=== PATIENT | female | born 1955 | race Caucasian/White ===

== ENCOUNTER 2024-11-17 01:31 | Emergency (ER) | payer MEDICARE, SELFPAY ==
[2024-11-17 01:33] VITALS: BP 138/80
--- NOTE | 2024-11-17 02:55 | ED.MUSCINJ ---
HPI-Injury
<TIFFANY Garg - Last Filed: 11/17/24 06:10>
General
Chief Complaint: Extremity Pain (non-traumatic)
Source: patient and family
Time Seen by Provider: 11/17/24 02:20
History of Present Illness-Injury
Initial Injury comments:
This is a 69 y/o F with a history of hand fracture s/p extensive hand/forearm surgery 12 years ago that presents with chronic forearm pain. This pain has been intermittent and debilitating for 12 years. It's intermittent with no known triggers. It
used to feel 'pins and needles' but has changed in the last 6 months to what feels like something 'compressing the bones'. When the pain flares, it is a 10/10 excruciating pain that lasts for about 8 minutes. She has tried many pain relievers in the
past including oxycodone, gabapentin and amitriptyline with no relief. Tonight, she took OTC advil/tylenol combo with no relief. Her son made her an alcoholic beverage with gin, in hopes she would be able to 'sleep it off' but there was no relief.
She presents hoping for some sort of pain relief to be able to sleep. She denies recent injury to the area. She denies, fever, erythema, swelling, decreased ROM, decreased sensation.
She is visiting from [place] and recieves most of her care there. She's had extensive hand/forearm surgeries in [place] and in [place]. She recently had an EMG and 'muscle test' done in [place]. She believes this may have been in a trigger. She was
given pain options by her orthopedic surgeon that include spinal cord stimulator.
Past History
<TIFFANY Garg - Last Filed: 11/17/24 06:10>
Past History
ED Past Medical History: Other (N/A)
ED Past Surgical History: Gynecological, Orthopedic and Other (Multiple orthopedic surgeries)
Social History
Tobacco: Non-smoker
Alcohol: Occasional
Drug: None
Personal:
Living: with family
Family History
Family History: Negative Diabetes, Hypertension or CAD
Review of Systems
<TIFFANY Garg - Last Filed: 11/17/24 06:10>
Review of Systems
Constitutional: Reports no symptoms
EENT: Reports no symptoms
Respiratory: Reports no symptoms
Cardiac: Reports no symptoms
ABD/GI: Reports no symptoms
: Reports no symptoms
Musculoskeletal: Reports muscle pain
Skin: Reports no symptoms
Neurological: Reports no symptoms
Phy Exam
<TIFFANY Garg - Last Filed: 11/17/24 06:10>
General Physical Exam
General Presentation: well appearing and no apparent distress
General age: appears stated age
General Skin: warm and dry
General Habitus: normal and elderly
General Mental: alert
General Hydration: appears well hydrated
Musculoskeletal Exam
Musculoskeletal Exam: full ROM (full ROM in right extremity, limited ROM due to pain in the Left), no edema and neuro vasc intact
Injury Course
<TIFFANY Garg - Last Filed: 11/17/24 06:10>
Orders/Labs/Results
Orders:
Orders
11/17/24 03:19
Ketorolac [Toradol] 15 mg IM NOW STA
Oxycodone/Acetaminophen [Percocet 5/325] 2 tablet PO NOW STA
<Prudencio Muhammad DO - Last Filed: 11/17/24 03:37>
Orders/Labs/Results
Orders:
Orders
11/17/24 03:19
Ketorolac [Toradol] 15 mg IM NOW STA
Oxycodone/Acetaminophen [Percocet 5/325] 2 tablet PO NOW STA
<TIFFANY Garg - Last Filed: 11/17/24 06:10>
MDM/Problems Addressed
MDM/Problems Addressed:
This is a 69 y/o F with a history of hand fracture s/p extensive hand/forearm surgery 12 years ago that presents with chronic forearm pain. She has tried OTC remedies without relief. This is a 03/07 pain.
<TIFFANY Garg - Last Filed: 11/17/24 06:10>
*Pulse Oximetry
SaO2: 98
Oxygen Mode of Delivery: Room air
*Critical Care Note
Total Time (30-74mins, 75-104mins- exclusive of procedures): Not Applicable
ED Attending Note
<TIFFANY Garg - Last Filed: 11/17/24 06:10>
-
Portions of this chart may have been created with voice recognition software.� Occasional wrong word or��sound alike� substitutions may have occurred due to the inherent limitations of voice recognition software.
<Prudencio Muhammad DO - Last Filed: 11/17/24 03:37>
ED Attending Note
Patient seen and examined by attending physician: Yes
I performed the substantive portion of visit, reviewed & personally made and approve the management plan that is documented in note by myself or ZAID.: Yes
ED Attending Note:
Note:
CHIEF COMPLAINT(S)
Pain in the wrist.
HISTORY OF PRESENT ILLNESS
The patient is a 69-year-old female presenting with wrist pain. The patient reports a history of pain evolving over six to seven years, initially described as 'electrical zaps' and now described as 'ratcheting pain' over the last six months. The
pain has not been relieved by typical home remedies, including alcohol consumption such as a double rum and coke or gin as mentioned. The patient also attempted [id number] medications without substantial relief before presentation.
SOCIAL HISTORY
The patient consumes alcohol, typically reporting drinking rum or gin.
REVIEW OF SYSTEMS
- Musculoskeletal: Chronic, worsening wrist pain.
PHYSICAL EXAM
Nursing notes reviewed and vital signs reviewed.
PLAN
The patient will be administered a shot of a medication and another medication as required. The patient will be monitored for relief and subsequent management decisions will be based on the response to initial treatment.
DIFFERENTIAL DIAGNOSIS
The Differential Diagnosis includes, in no particular order and is not limited to:
- Osteoarthritis
- Rheumatoid arthritis
- Carpal tunnel syndrome
- Tendinitis
- Gout
- Neuropathic pain
- Wrist fracture
- Ligament injury
- Complex regional pain syndrome
- Infectious arthritis
Disposition:
SUMMARY OF ENCOUNTER
69-year-old female with chronic left wrist pain.
DISPOSITION
Patient will be discharged home.
ASSESSMENT
Chronic left wrist pain.
EMERGENCY TREATMENTS ADMINISTERED
Splint and pain medicine given.
MEDICATION RECONCILIATION
Pain medicine administered.
MEDICAL DECISION MAKING
1. Number & Complexity of Problems:
- Chronic conditions affecting care: Chronic wrist pain.
- Differential diagnoses include osteoarthritis, rheumatoid arthritis, carpal tunnel syndrome, tendinitis, gout, neuropathic pain, wrist fracture, ligament injury, complex regional pain syndrome, infectious arthritis.
Discharge Plan
Departure
Patient Disposition: Home (Routine Discharge)
Date of Disposition: 11/17/24
Time of Disposition: 03:36
Patient with high blood pressure during this ER visit?: Yes
Discharge Problem:
Arm pain
Instructions: Muscle and Bone Pain (DC)
Prescriptions:
No Action
No Current Medications
0
Referrals:
UNKNOWN - PT DOES,NOT KNOW [Family Provider]
Activity Restrictions/Additional Instructions:
Thank You for choosing [facility].
It was a pleasure meeting you and taking part in your care. We hope for your continued healing and wellness.
Please read discharge instructions in their entirety. However, they are for general education and may not describe your exact diagnosis at discharge. Information on your ER visit and medical conditions were discussed with you along with appropriate
follow up information...
If indicated, please take your medications as instructed and indicated on discharge paperwork.
Please schedule a follow up appointment as directed. Call to schedule an appointment
Please return to the emergency department with ANY change in, persisting, or worsening of symptoms. If any of your symptoms do not improve, or persist, or become more severe within 6-12 hours, please return to the emergency department for further
care.
Please return to the emergency department if you develop a headache, neck pain/stiffness, fever greater than 100.4F, chest pain, shortness of breath, persistent nausea, vomiting, slurred speech, difficulty walking, numbness/tingling, weakness, signs
of infection or any other symptoms that are worrisome to you.
If you have any questions or concerns please do not hesitate to call the Hospital at
Interventions
Interventions:
*Risk Screen - Suicide Last Done: 11/17/24 01:33
*General Assessment Last Done: 11/17/24 03:39
*Neglect/Abuse Screening Last Done: 11/17/24 01:33
*ED- Fall Risk Assessment Last Done: 11/17/24 02:26
*ED COVID-19 Vaccine History Last Done: 11/17/24 03:39
*Nursing Disposition Last Done: 11/17/24 03:40
ED-Skin Assessment Last Done: 11/17/24 03:39
ED-Musculoskeletal Assessment Last Done: 11/17/24 03:39
Discharge Date and Time
Discharge Date/Time: 11/17/24 03:41
Print Language: HONDURAN
[2024-11-17] MEDS: TORADOL 15 MG IM (03:29)
[2024-11-17] MEDS: PERCOCET 5/325 2 TABLET PO (03:29)
== END 2024-11-17 03:41 | disposition home or self-care (01) ==
LOC: EMR 01:31
PROVIDERS: EMERGENCY PHYSICIAN Student in an Organized Health Care Education/Training Program
DX: M79.632 Pain in left forearm (principal); M25.532 Pain in left wrist; M79.10 Myalgia, unspecified site; G89.29 Other chronic pain; R03.0 Elevated blood-pressure reading, without diagnosis of hypertension
CPT/HCPCS: 99282